=== PATIENT | female | born 1980 | race African-American/Black ===

== ENCOUNTER → 2024-09-20 | Emergency (ER) | payer SELFPAY ==
[~2024-09-20] MED LIST: Acetaminophen 500 MG TAB ONE; Albuterol 200 PUFF (6.7GM INHALER) ONE; Ipratropium/Albuterol 3 ML NEB ONE; Sodium Chloride 0.9% 1,000 ML ONE; Sulfameth/Trimethoprim DS 800-160mg TAB ONE; cefTRIAXone (ROCEPHIN) 1 GM VIAL ONE; methylPREDNISolone Sod Succ/PF 125 MG/2 ML VIAL ONE; predniSONE 20 MG TAB ONE
[2024-09-20 01:35] LABS: #Eosinophils 0.1 thou/uL (0.0-0.7); #Lymphocytes 0.5 thou/uL (1.20-3.40); #Monocytes 0.5 thou/uL (0.11-0.59); #Neutrophils 8.3 thou/uL (1.40-6.50); %Basophils 0.4 % (0.0-1.0); %Eosinophils 0.7 % (0.0-10.0); %Monocytes 5.2 % (0.0-10.0); %Neutrophils 88.8 % (42.0-75.0); Hematocrit 33.1 % (36.0-47.0); Hemoglobin 10.7 g/dL (12.0-16.0); Mean Corpuscular HGB CONC 32.4 g/dL (32.0-36.0); Mean Corpuscular Hemoglobin 28.1 pg (27.0-31.0); Mean Corpuscular Volume 86.6 fl (78.0-98.0); Mean Platelet Volume 7.5 fL (7.4-10.4); Platelet Count 224 10x3/uL (130-400); RBC Distribution Width 12.3 % (11.5-14.5); Red Blood Cell (RBC) Count 3.83 mill/uL (4.20-5.40); White Blood Cell (WBC) Count 9.3 10x3/uL (4.8-10.8)
[2024-09-20 01:42] LABS: Bilirubin Negative (Negative); Blood, Urine Trace (Negative); Glucose, Urine (Dipstick) Negative (Negative); Ketone, Urine Trace mg/dL (Negative); Leukocyte Negative (Negative); Nitrite Positive (Negative); Protein, Urine (Dipstick) Negative (Neg-Trace); pH, Urine 7.5 (5.0-9.0)
[2024-09-20 01:47] LABS: Clarity Hazy (Clear)
[2024-09-20 01:47] LABS: Base Excess-Venous -2.5 mmol/L (-2.0 to 3.0); Bicarbonate (HCO3v) 21.6 mmol/L (22.0-28.0); CO2 Tension (PvCO2) 34.2 mmHg (42.0-51.0); Calcium, Ionized 1.22 mmol/L (1.15-1.33); Chloride 105 mmol/L (98-107); Hemoglobin - Calc 12.9 g/dL (12.0-16.0); Potassium 3.7 mmol/L (3.5-5.1); Sodium 139 mmol/L (138-145); T. Carbon Dioxide 22.6 mmol/L (22.0-28.0); vO2 Saturation-calc 90.9 % (60.0-85.0)
[2024-09-20 01:48] LABS: Bacteria/HPF 3+ HPF (None Seen); CAUTI Indications for Culture Dysuria,urgency,freq; RBC/HPF 0-3 HPF (0-3); Squamous Epithelial 0-3 HPF (0-3); Urine Culture Reflex No No; WBC/HPF 0-3 HPF (0-3)
[2024-09-20 01:50] LABS: ALT (SGPT) 10 U/L (Less than 34); AST (SGOT) 15 U/L (11-34); Albumin 3.5 g/dL (3.1-4.5); Alkaline Phosphatase 63 U/L (40-110); Anion Gap 12 mmol/L (10-20); BUN (Urea Nitrogen) 12 mg/dL (7.0-18.7); Bilirubin, Total 0.5 mg/dL (0.3-1.2); Calc. Creatinine Clearance 0 mL/min (70-130); Calcium 8.8 mg/dL (7.8-10.44); Carbon Dioxide 20 mmol/L (22-29); Chloride 107 mmol/L (98-107); Estimated GFR 68; Globulin 3.8 g/dL (2.4-3.5); Glucose 120 mg/dL (70-105); Magnesium 1.6 mg/dL (1.6-2.6); Potassium 3.7 mmol/L (3.5-5.1); Protein, Total 7.3 g/dL (6.0-8.3); Sodium 135 mmol/L (136-145)
[2024-09-20 01:51] LABS: Troponin I Less than 0.010 ng/mL (< 0.028)
== END ==
LOC: NAV ERS 00:42
DX: J44.1 Chronic obstructive pulmonary disease with (acute) exacerbation (principal); L73.2 Hidradenitis suppurativa; B34.9 Viral infection, unspecified; F17.210 Nicotine dependence, cigarettes, uncomplicated; Z59.00 Homelessness unspecified; Z55.0 Illiteracy and low-level literacy
CPT/HCPCS: 71045; 80053; 81001; 82330; 82435; 82803; 83605; 83735; 84132; 84295; 84484; 85014; 85025; 87428; 93005; 94640; 94760; 96374; 96375; J0696; J2919; J7030; J7512; J7620